=== PATIENT | male | born 1965 | race Two or more races ===

== ENCOUNTER 2021-05-13 08:05 | Day surgery (SDC) | payer OTHER ==
[~2021-05-13 08:05] MED LIST: LOSARTAN-HCTZ1 EACH PO
== END 2021-05-13 19:30 | disposition home or self-care (01) ==
LOC: CIR.AMB 08:05
PROVIDERS: ATTEND Colon & Rectal Surgery
DX: K60.3 Anal fistula (principal); Z86.16 Personal history of COVID-19; I10 Essential (primary) hypertension

== ENCOUNTER 2021-07-08 09:29 | Day surgery (SDC) | payer OTHER | END 2021-07-08 12:35 | disposition home or self-care (01) | LOC: CIR.AMB 09:29 | PROVIDERS: ATTEND Colon & Rectal Surgery | DX: K60.3 Anal fistula (principal); L92.9 Granulomatous disorder of the skin and subcutaneous tissue, unspecified; K64.0 First degree hemorrhoids; I10 Essential (primary) hypertension; Z86.16 Personal history of COVID-19 ==

== ENCOUNTER 2022-08-20 08:30 | Inpatient (IN) | payer OTHER ==
[~2022-08-20] VITALS: Ht 172.7 cm; Wt 68.9 kg
--- NOTE | 2022-08-20 08:51 | NUR ---
SE RECIBE PACIENTE SOLO EN [place] CON QUEJA DE DEBILIDAD, EL MISMO REFIERE QUE HACE 9 HOYOS SE INTOXICO CON COMIDA EN EL HOGAR Y SE QUEDO EN EL HOGAR CON VOMITOS, EL ELMO DE HOY PRESENTO 1 VOMITO EN MANANA. BERONICA LLEVA VOMITOS DESDE HACE 9 HOYOS Y NO A COMIDO NADA DESDE EL ELMO QUE SE INTOXICO. SE REALIZA EKG Y SE PRESENTA A DOCTOR.
--- NOTE | 2022-08-20 09:29 | NUR ---
PTE EVALUADO POR EL DR RAMIREZ QUIEN ORDENA EL TX. MR D TIMBO ORIENTA SOBRE EL TX ORDENADO, LO CUAL REFIERE ENTENDER, REALIZA PRUEBAS DE LABORATORIO Y ADMINISTRA MEDICAMENTOS ALTHEA ORDEN MEDICA Y SIGUIENDO MEDIDAS ASEPTICAS.
--- NOTE | 2022-08-20 15:57 | NUR ---
SE RECIBE PACIENTE ALERTA Y ORIENTADO X 3 ESFERAS EN CAMA CON BARANDAS ELEVADAS POR SEGURIDAD. PRESENTANDO BUEN PATRON RESPIRATORIO. RECIBIENDO IV'S 0.9NSS BAJANDO A 250ML/HR AREA NAHOMY DE EDEMA Y ERITEMA. PENDIENTE RE-EVALUACION MEDICA.
== END 2022-08-23 10:57 | disposition home or self-care (01) | DRG 641 ==
LOC: ER 08:30 → MEDI 18:17 → MEDJ 18:17 → MEDI 19:13
PROVIDERS: ADMIT Internal Medicine; ATTEND Internal Medicine
PROC: BW28ZZZ Computerized Tomography (CT Scan) of Head (ICD-10-PCS; principal; 2022-08-22)
DX: E86.0 Dehydration (principal); N17.9 Acute kidney failure, unspecified; A05.9 Bacterial foodborne intoxication, unspecified; K52.89 Other specified noninfective gastroenteritis and colitis; I12.9 Hypertensive chronic kidney disease with stage 1 through stage 4 chronic kidney disease, or unspecified chronic kidney disease; N18.9 Chronic kidney disease, unspecified; Z20.822 Contact with and (suspected) exposure to COVID-19